=== PATIENT | female | born 1950 ===

== ENCOUNTER 2018-03-08 12:18 | Emergency (ER) | payer MEDICARE ==
[2018-03-08 12:32] VITALS: BP 124/79
--- NOTE | 2018-03-08 12:53 | UC ---
Skin Complaint HPI - HPI Summary HPI Summary: red itchy rash both arms after cutting bushes yesterday-no vesicles - History of Current Complaint Chief Complaint: UCRash Time Seen by Provider: 03/08/18 12:47 Stated Complaint: RASH Hx Obtained From: Patient ?: No Onset/Duration: Sudden Onset, Lasting Days - 1 Timing: Constant Pain Intensity: 0 Location: Discrete - both forearms Character: Redness Aggravating Factor(s): Nothing Alleviating Factor(s): Cold Compresses Associated Signs & Symptoms: Positive: Negative Related History: Possible Reaction to: Environmental Exposure - Allergy/Home Medications Allergies/Adverse Reactions: Allergies Allergy/AdvReac Type Severity Reaction Status Date / Time antibiotics Allergy See Comment Uncoded 03/08/18 12:32 Home Medications: Home Medications Beclomethasone 40 MCG MDI(NF) [Qvar 40 MCG MDI(NF)] 2 puff INH BID 03/08/18 [ History Confirmed 03/08/18] Review of Systems Constitutional: Negative Skin: Rash - red non vesicular both fore arms Eyes: Negative ENT: Negative Respiratory: Negative Cardiovascular: Negative Gastrointestinal: Negative Genitourinary: Negative Motor: Negative Neurovascular: Negative Musculoskeletal: Negative Neurological: Negative Psychological: Negative Is Patient Immunocompromised?: No All Other Systems Reviewed And Are Negative: Yes PMH/Surg Hx/FS Hx/Imm Hx Previously Healthy: No Respiratory History: Asthma - Surgical History Surgical History: Yes Surgery Procedure, Year, and Place: breast bx - Family History Known Family History: Positive: None - Social History Occupation: Employed Full-time Lives: Alone Alcohol Use: Weekly Substance Use Type: None Smoking Status (MU): Never Smoked Tobacco Physical Exam Triage Information Reviewed: Yes Appearance: Well-Appearing, No Pain Distress, Well-Nourished Vital Signs: Initial Vital Signs Temp 97.3 F 03/08/18 12:28 Pulse 90 03/08/18 12:28 Resp 18 03/08/18 12:28 BP 124/79 03/08/18 12:28 Pulse Ox 100 03/08/18 12:28 Vital Signs Reviewed: Yes Eye Exam: Normal Eyes: Positive: Conjunctiva Clear ENT Exam: Normal ENT: Positive: Normal ENT inspection, Hearing grossly normal. Negative: Trismus , Muffled voice, Hoarse voice Dental Exam: Normal Neck exam: Normal Neck: Positive: Supple, Nontender Respiratory Exam: Normal Respiratory: Positive: Chest non-tender, Lungs clear, Normal breath sounds, No respiratory distress, No accessory muscle use Cardiovascular Exam: Normal Cardiovascular: Positive: RRR, Pulses Normal, Brisk Capillary Refill Musculoskeletal Exam: Normal Musculoskeletal: Positive: Strength Intact, ROM Intact, No Edema Neurological Exam: Normal Neurological: Positive: Alert, Muscle Tone Normal Psychological Exam: Normal Skin Exam: Normal - red non vesicular Skin: Positive: rashes Course/Dx - Course Course Of Treatment: may cintinue with cold packs, may add benadryl po and hydrocortisone cream follow with pcp - Diagnoses Provider Diagnoses: contact dermititis both forearms Discharge - Sign-Out/Discharge Documenting (check all that apply): Patient Departure - Discharge Plan Condition: Stable Disposition: HOME Patient Education Materials: Hydrocortisone (On the skin), Contact Dermatitis ( ED), Cold Compress or Soak (ED) Referrals: [facility] [Outside] - If Needed - Billing Disposition and Condition Condition: STABLE Disposition: Home
== END 2018-03-08 13:22 | disposition home or self-care (01) ==
LOC: UCEAST 12:18
DX: L25.9 Unspecified contact dermatitis, unspecified cause (principal); J45.909 Unspecified asthma, uncomplicated; Z88.1 Allergy status to other antibiotic agents
CPT/HCPCS: 99201; G0463